=== PATIENT | female | born 1945 | race Two or more races ===

== ENCOUNTER 2021-08-16 12:29 | Emergency (ER) | payer OTHER ==
[~2021-08-16] VITALS: Ht 149.9 cm; Wt 52.2 kg
== END 2021-08-16 16:53 | disposition home or self-care (01) ==
LOC: ER 12:29
DX: S42.292A Other displaced fracture of upper end of left humerus, initial encounter for closed fracture (principal); M54.2 Cervicalgia; W22.8XXA Striking against or struck by other objects, initial encounter; Y93.89 Activity, other specified; Y92.89 Other specified places as the place of occurrence of the external cause; Y99.8 Other external cause status